=== PATIENT | female | born 1955 | race Caucasian/White ===

== ENCOUNTER 2017-07-27 16:04 | Emergency (ER) | payer SELFPAY ==
[~2017-07-27] VITALS: Ht 180.3 cm; Wt 143.0 kg
[~2017-07-27 16:04] MED LIST: ASA LO-DOSE81 MG OR; ASPIRIN LOW DOS81 M2 PO; GLUCOPHAGE1000 MG OR; GLUCOPHAGE500 MG OR; HYDROCHLOROT25 MG OR; HYDROCHLOROT25 MG PO; LEVOTHYROXIN125 MCG PO; LEVOTHYROXIN175 MCG OR; LORTAB 5 OR; MELOXICAM7.5 MG PO; METFORMIN1000 MG PO; NEURONTIN300 MG OR; SILVADENE1 % EX; ULTRAM50 MG OR
[2017-07-27 18:16] LABS: HEMATOCRIT 40.9 % (37.0-47.0); IMMATURE GRANULOCYTES 0.5 % (0.0-1.0); MEAN CELL VOLUME 91.5 fL CALC (80.0-100.0); MEAN CORPUSCULAR HGB 31.3 pG CALC (26.0-32.0); MEAN CORPUSCULAR HGB CONC 34.2 g/L CALC (32.0-36.0); NEUT# 5.97 thou/uL (2.00-7.15); RED BLOOD COUNT 4.47 mill/uL (4.20-5.60); RED CELL DISTRI WIDTH 13.4 % (11.5-15.5)
[2017-07-27 18:18] LABS: URINE BILIRUBIN - DIPSTICK NEGATIVE (NEGATIVE); URINE BLOOD DIPSTICK NEGATIVE (NEGATIVE); URINE CLARITY CLEAR; URINE COLOR YELLOW; URINE GLUCOSE - DIPSTICK NEGATIVE (NEGATIVE); URINE KETONE NEGATIVE (NEGATIVE); URINE LEUK ESTERASE NEGATIVE (NEGATIVE); URINE NITRITE - DIPSTICK NEGATIVE (Negative); URINE PROTEIN - DIPSTICK NEGATIVE (NEG-TRACE); URINE SPECIFIC GRAVITY >=1.030; URINE UROBILINOGEN - DIPSTICK 0.2 E.U./dL (0.2)
[2017-07-27 18:29] LABS: ALKALINE PHOSPHATASE 78 u/l (38-126); ANION GAP 19 (6-22 (CALC)); BILIRUBIN, TOTAL 0.7 mg/dL (0.0-1.4); BUN 12 mg/dL (8-23); BUN/CREATININE RATIO 14 (12-20 (CALC)); CALCIUM 10.9 mg/dL (8.4-10.2); CARBON DIOXIDE 28 mmol/l (22-30); CHLORIDE 101 mmol/l (95-108); CREATININE 0.8 mg/dL (0.5-1.0); GFR > 60 ML/MIN (>=60 (CALC)); GFR FOR AFR.AMER. > 60 ML/MIN (>=60 (CALC)); GLUCOSE 198 mg/dL (82-115); POTASSIUM 4.5 mmol/l (3.5-5.1); SGOT/AST 63 u/l (9-36); SGPT/ALT 61 u/l (11-66); SODIUM 144 mmol/l (137-146); TOTAL PROTEIN 8.6 g/dL (6.3-8.2)
[2017-07-27] MEDS ORDERED: FLEXERIL PO (18:40)
[2017-07-27] MEDS ORDERED: ULTRAM50 M1 PO (18:40)
[2017-07-27 18:54] VITALS: BP 164/90
== END 2017-07-27 19:07 | disposition home or self-care (01) | DRG 392 ==
LOC: ED 16:04
PROVIDERS: Emergency Medicine
DX: R10.2 Pelvic and perineal pain (principal); M16.12 Unilateral primary osteoarthritis, left hip

== ENCOUNTER 2021-04-23 15:54 | Emergency (ER) | payer MEDICARE ==
[~2021-04-23] VITALS: Ht 180.3 cm; Wt 108.4 kg
[~2021-04-23 15:54] MED LIST changes: +FLEXERIL PO; +ULTRAM50 M1 PO
[2021-04-23] MEDS ORDERED: EFFEXOR XR75 MG/CAP PO (18:58)
[2021-04-23] MEDS ORDERED: TRAMADOL HCL50 MG PO (20:38)
[2021-04-23] MEDS ORDERED: VOLTAREN - GENE75 MG PO (20:38)
[2021-04-23 20:54] VITALS: BP 124/57
== END 2021-04-23 21:07 | disposition home or self-care (01) ==
LOC: ED 15:54
DX: S46.912A Strain of unspecified muscle, fascia and tendon at shoulder and upper arm level, left arm, initial encounter (principal); M25.562 Pain in left knee; E11.9 Type 2 diabetes mellitus without complications; E03.9 Hypothyroidism, unspecified; F32.A Depression, unspecified; W01.198A Fall on same level from slipping, tripping and stumbling with subsequent striking against other object, initial encounter; Y93.89 Activity, other specified; Y92.89 Other specified places as the place of occurrence of the external cause; Z79.84 Long term (current) use of oral hypoglycemic drugs

== ENCOUNTER 2024-07-12 16:08 | Emergency (ER) | payer MEDICARE ==
[~2024-07-12] VITALS: Ht 180.3 cm; Wt 125.0 kg
[2024-07-12] VITALS (14 sets, daily range): BP systolic 123–159; BP diastolic 66–84
[~2024-07-12 16:08] MED LIST changes: +EFFEXOR XR75 MG/CAP PO; +TRAMADOL HCL50 MG PO; +VOLTAREN - GENE75 MG PO
[2024-07-12] MEDS ORDERED: Heparin SODIUM (Porcine) 5,000 UNITS/ML SDV IV ONE (19:40)
[2024-07-12] MEDS ORDERED: Heparin SODIUM (Porcine) 500 ML IV ONE (19:45)
[2024-07-12 20:33] LABS: ALBUMIN 4.6 g/dL (3.2-5.0); BILIRUBIN, TOTAL 0.9 mg/dL (0.02-1.3); CREATININE 0.6 mg/dL (0.5-1.0); TOTAL PROTEIN 8.7 g/dL (6.3-8.2)
[2024-07-12 20:37] LABS: POTASSIUM 5.2 mmol/l (3.5-5.1)
== END 2024-07-12 20:40 | disposition short-term general hospital (02) ==
LOC: ED 16:08
PROVIDERS: Emergency Medicine
DX: I82.412 Acute embolism and thrombosis of left femoral vein (principal); I82.442 Acute embolism and thrombosis of left tibial vein; E11.9 Type 2 diabetes mellitus without complications; E03.9 Hypothyroidism, unspecified; F32.A Depression, unspecified; Z98.84 Bariatric surgery status
CPT/HCPCS: J1644